=== PATIENT | female | born 1950 | race Caucasian/White ===

== ENCOUNTER 2019-02-26 19:30 | Emergency (ER) | payer MEDICARE ==
[~2019-02-26] VITALS: Ht 162.6 cm; Wt 56.7 kg
[~2019-02-26 19:30] MED LIST: ASPIR-LOW81 MG PO; ASPIRIN325 MG PO; HYDROCODONE-ACE15 M3 PO; MILK THISTLE175 MG PO; MOBIC15 MG PO; NORCO 5-325 TA1 EACH PO; VITAMIN D250000 UNIT PO
[2019-02-26] MEDS ORDERED: VITAMIN D400 UNIT PO (21:02)
[2019-02-26] MEDS ORDERED: NORCO 5-325 TA1 EACH PO (22:41)
== END 2019-02-26 23:02 | disposition home or self-care (01) ==
LOC: ED 19:30
DX: S82.041A Displaced comminuted fracture of right patella, initial encounter for closed fracture (principal); S63.501A Unspecified sprain of right wrist, initial encounter; F17.200 Nicotine dependence, unspecified, uncomplicated; Z79.82 Long term (current) use of aspirin; W01.0XXA Fall on same level from slipping, tripping and stumbling without subsequent striking against object, initial encounter
CPT/HCPCS: 73110; 73560; 90471; 90715; 99283-25

== ENCOUNTER 2021-06-20 14:34 | Emergency (ER) | payer MEDICARE ==
[~2021-06-20] VITALS: Ht 162.6 cm; Wt 56.7 kg
[~2021-06-20 14:34] MED LIST changes: +VITAMIN D400 UNIT PO
== END 2021-06-20 18:29 | disposition home or self-care (01) ==
LOC: ED 14:34
DX: U07.1 COVID-19 (principal); F17.200 Nicotine dependence, unspecified, uncomplicated; Z79.82 Long term (current) use of aspirin; Z79.899 Other long term (current) drug therapy
CPT/HCPCS: 99284; C9803; U0003